=== PATIENT | male | born 1980 | race Hispanic/Latino ===

== ENCOUNTER 2017-03-20 11:50 | Emergency (ER) | payer OTHER ==
[2017-03-20 12:11] VITALS: TEMP 99
[2017-03-20] MEDS ORDERED: cefTRIAXone SODIUM 1 GM VIAL IM ONE (12:36)
[2017-03-20] MEDS ORDERED: TETANUS,DIPHTHERIA,PERTUSSIS 1 EA SYG IM ONE (12:39)
--- NOTE | 2017-03-20 12:43 | ED.PDOC ---
History of Present Illness - General Chief Complaint: Skin/Abrasion/Tear Stated Complaint: skin infection Time Seen by Provider: 03/20/17 12:35 Source: patient Exam Limitations: no limitations - History of Present Illness Initial Comments: 5 D AGO PT WAS WELDING AT WORK AND HE STABBED ABD WITH WIRE ACCIDENTALLY APPROX 1/4 INCH. 3 D AGO HE NOTICED HIS ABD BECOMING REDDENED AROUND THE SITE. IT IS SPREADING. NOT SEEN DR YET. AREA IS PAINFUL BUT NO PURUELENCE. Severity: moderate Improving Factors: nothing Worsening Factors: movement Associated Symptoms: denies symptoms Allergies/Adverse Reactions: Allergies NO KNOWN ALLERGY Allergy (Verified 08/05/14 10:50) Home Medications: Ambulatory Orders Doxycycline Hyclate 100 mg PO BID #20 tab 03/20/17 Sulfa/Trimeth 800/160 (Ds) Tab [Bactrim DS Tab] 1 unit PO BID #20 tab 03/20/17 Review of Systems - Review of Systems Constitutional: States: no symptoms reported. Denies: chills, fever, weakness EENTM: States: no symptoms reported Respiratory: States: no symptoms reported Cardiology: States: no symptoms reported Gastrointestinal/Abdominal: Denies: constipation, diarrhea, nausea Genitourinary: States: no symptoms reported Musculoskeletal: States: no symptoms reported Skin: States: see HPI, change in color, rash Neurological: States: no symptoms reported Endocrine: States: no symptoms reported Hematologic/Lymphatic: States: no symptoms reported All other Systems: Reviewed and Negative Past Medical History (General) - Patient Medical History Hx Seizures: No Hx Stroke: No Hx Dementia: No Hx Asthma: No Hx of COPD: No Hx Cardiac Disorders: No Hx Congestive Heart Failure: No Hx Pacemaker: No Hx Hypertension: Yes Hx Thyroid Disease: No Hx Diabetes: No Hx Gastroesophageal Reflux: No Hx Renal Disease: No Hx Cancer: No Hx of HIV: No Hx Hepatitis C: No Hx MRSA: No Surgical History: no surgical history - Vaccination History Hx Tetanus, Diphtheria Vaccination: No - unknown Hx Influenza Vaccination: No Hx Pneumococcal Vaccination: No - Social History Hx Tobacco Use: No Hx Chewing Tobacco Use: No Hx Alcohol Use: No Hx Substance Use: No Hx Substance Use Treatment: No Hx Depression: No Hx Physical Abuse: No Hx Emotional Abuse: No Hx Suspected Abuse: No - Female History Patient : No Family Medical History - Family History Mother Living Status: Still Living Hx Family Asthma: Yes Physical Exam - Physical Exam General Appearance: Alert, Well Nourished Eye Exam: bilateral normal Ears, Nose, Throat: hearing grossly normal, normal ENT inspection Neck: non-tender, full range of motion Respiratory: chest non-tender, lungs clear Cardiovascular/Chest: normal peripheral pulses, regular rate, rhythm Gastrointestinal/Abdominal: normal bowel sounds, soft Extremity: normal range of motion, non-tender 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 PUNCTURE SITE HAS SCAB. INDURATED BUT NO FLUCTUANCE (I&D IS NOT INDICATED). Progress - Results/Orders Results/Orders: PT STATES HE IS NOT CONSISTENT AT TAKING MEDICATIONS. I EXPLAINED TO HIM THE IMPERATIVENESS OF TAKING ANX, OTHERWISE THE IFXN WILL WORSEN. Departure - Departure Clinical Impression: Cellulitis Disposition: Discharge to Home or Self Care Condition: Fair Departure Forms: ED Discharge - Pt. Copy, Patient Portal Self Enrollment Instructions: DI for Cellulitis -- Adult Diet: resume usual diet Activity: increase activity as tolerated Referrals: Raghu Armstrong MD [Primary Care Provider] - 1-2 Days Prescriptions: Doxycycline Hyclate 100 mg PO BID #20 tab Sulfa/Trimeth 800/160 (Ds) Tab [Bactrim DS Tab] 1 unit PO BID #20 tab Home Medications: Ambulatory Orders Doxycycline Hyclate 100 mg PO BID #20 tab 03/20/17 Sulfa/Trimeth 800/160 (Ds) Tab [Bactrim DS Tab] 1 unit PO BID #20 tab 03/20/17 Additional Instructions: Please take all of the antibiotics twice per day until the bottle is empty. Please see your doctor or return to the ER if the area of redness enlarges.
[2017-03-20] MEDS ORDERED: LIDOCAINE 1% 10 ML VIAL INJ ONE (12:50)
[2017-03-20 13:20] VITALS: BP 135/87; O2SAT 97
== END 2017-03-20 13:20 | disposition home or self-care (01) ==
LOC: ER 11:50
DX: L03.311 Cellulitis of abdominal wall (principal); I10 Essential (primary) hypertension; Z23 Encounter for immunization

== ENCOUNTER 2017-12-14 12:06 | Emergency (ER) | payer BC, OTHER ==
[2017-12-14 12:26] VITALS: BP 140/102; TEMP 96.7; O2SAT 100
--- NOTE | 2017-12-14 12:27 | ED.PDOC ---
History of Present Illness - General Chief Complaint: Upper Extremity Injury Stated Complaint: left hand pain,right toe pain Time Seen by Provider: 12/14/17 12:25 Additional Information: 37 YEAR OLD PRESENTS WITH INJURY TO THE LEFT AHND AND RIGHT BIG TOE AFTER A FALL 3 NIGHT S AGO WHILE CHASING HIS DOG IN THE DARK NO OTHER INJURY REPORTED - History of Present Illness Timing/Duration: getting worse Severity: moderate Improving Factors: immobilization Worsening Factors: movement Associated Symptoms: denies symptoms Allergies/Adverse Reactions: Allergies NO KNOWN ALLERGY Allergy (Verified 08/05/14 10:50) Home Medications: Ambulatory Orders Acetamin W/Cod #3 Tab [Tylenol w/CODEINE #3] 1 ea PO Q6HR PRN #40 tab 12/14/17 Review of Systems - Review of Systems Constitutional: States: no symptoms reported EENTM: States: no symptoms reported Respiratory: States: no symptoms reported Cardiology: States: no symptoms reported Gastrointestinal/Abdominal: States: no symptoms reported Genitourinary: States: no symptoms reported Neurological: States: no symptoms reported Endocrine: States: no symptoms reported Past Medical History (General) - Patient Medical History Hx Seizures: No Hx Stroke: No Hx Dementia: No Hx Asthma: No Hx of COPD: No Hx Cardiac Disorders: No Hx Congestive Heart Failure: No Hx Pacemaker: No Hx Hypertension: Yes Hx Thyroid Disease: No Hx Diabetes: No Hx Gastroesophageal Reflux: No Hx Renal Disease: No Hx Cancer: No Hx of HIV: No Hx Hepatitis C: No Hx MRSA: No - Vaccination History Hx Tetanus, Diphtheria Vaccination: No - unknown Hx Influenza Vaccination: No Hx Pneumococcal Vaccination: No - Social History Hx Tobacco Use: No Hx Chewing Tobacco Use: No Hx Alcohol Use: No Hx Substance Use: No Hx Substance Use Treatment: No Hx Depression: No Hx Physical Abuse: No Hx Emotional Abuse: No Hx Suspected Abuse: No - Female History Patient : No Family Medical History - Family History Mother Living Status: Still Living Hx Family Asthma: Yes Physical Exam - Physical Exam General Appearance: Alert, Comfortable Eye Exam: bilateral normal Ears, Nose, Throat: hearing grossly normal, normal ENT inspection, normal pharynx, abnormal TM (R) Neck: non-tender, full range of motion, supple Respiratory: chest non-tender, lungs clear, normal breath sounds, no respiratory distress Cardiovascular/Chest: normal peripheral pulses, regular rate, rhythm, no edema, no gallop Back Exam: normal inspection, no CVA tenderness Extremity: normal range of motion - RIGHT GREAT TOE ECHYMOSIS SWELLING AND SUB UNGUAL HEMATOMA NOTED LEFT HAND IS SWOLLEN AND TENDER Neurologic: sand 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 Copy, Patient Portal Self Enrollment Instructions: DI for Arm Pain Referrals: Raghu Armstrong MD [Primary Care Provider] - 1-2 Weeks Prescriptions: Acetamin W/Cod #3 Tab [Tylenol w/CODEINE #3] 1 ea PO Q6HR PRN #40 tab PRN Reason: Mild To Moderate Pain Home Medications: Ambulatory Orders Acetamin W/Cod #3 Tab [Tylenol w/CODEINE #3] 1 ea PO Q6HR PRN #40 tab 12/14/17 Additional Instructions: FOLLOW UP WITH DR [facility]
[2017-12-14] MEDS: HYDROcodone 10MG/APAP 325MG 1 EA TAB PO ONE (12:42)
--- NOTE | 2017-12-14 13:08 | RAD ---
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 There is extensive surrounding soft tissue swelling. Three views of the right foot demonstrate no acute fracture or focal osseous destruction. Joint spaces are maintained. There is mild varus angulation to the foot alignment. IMPRESSION: Comminuted, angulated fracture of the left fifth metacarpal. No acute osseous abnormality in the right foot. Electronically signed by: Ham Gardner MD 12/14/2017 1:07 PM CHEMICAL LABORATORY TECHNICIAN
--- NOTE | 2017-12-14 13:08 | RAD ---
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 There is extensive surrounding soft tissue swelling. Three views of the right foot demonstrate no acute fracture or focal osseous destruction. Joint spaces are maintained. There is mild varus angulation to the foot alignment. IMPRESSION: Comminuted, angulated fracture of the left fifth metacarpal. No acute osseous abnormality in the right foot. Electronically signed by: Ham Gardner MD 12/14/2017 1:07 PM PAPER [employer]E GR[employer]
== END 2017-12-14 13:51 | disposition home or self-care (01) ==
LOC: ER 12:06
DX: S62.337A Displaced fracture of neck of fifth metacarpal bone, left hand, initial encounter for closed fracture (principal); S92.421A Displaced fracture of distal phalanx of right great toe, initial encounter for closed fracture; W19.XXXA Unspecified fall, initial encounter; Y92.9 Unspecified place or not applicable

== ENCOUNTER 2019-10-06 09:00 | Emergency (ER) | payer SELFPAY ==
[2019-10-06 09:33] VITALS: TEMP 97.2
[2019-10-06] MEDS ORDERED: hydrOXYzine HCl 25 MG TAB PO ONE (09:37)
--- NOTE | 2019-10-06 09:43 | ED.PDOC ---
History of Present Illness - General Chief Complaint: General Stated Complaint: HEADACHE, SOB AND ANXIETY Time Seen by Provider: 10/06/19 09:27 Source: patient Exam Limitations: no limitations - History of Present Illness Initial Comments: 39 yo M with hx of HTN noncompliance with medication since 2006 who presents for generalized weakness onset yesterday. Pt states that he thinks it is because his BP is so high. Hx of anxiety, has been under a lot of stress recently and believes his anxiety is high right now contributing to his sx. 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 Has not take any decongestants recently. Declines being tested for the flu. Denies f/c, cough, CP, SOB, abd pain, n/v/d, edema, weakness, numbness, change in vision, back or neck pain, YI. When asked directly about endorsing YI to triage nurse he states "it resolved already," states it was very mild, frontal, no radiation. Allergies/Adverse Reactions: Allergies NO KNOWN ALLERGY Allergy (Verified 10/06/19 09:14) Home Medications: Ambulatory Orders Amlodipine Besylate [Norvasc] 5 mg PO DAILY #14 tab 10/06/19 Review of Systems - Review of Systems Constitutional: States: other - High BP. Denies: chills, fever EENTM: States: nose congestion. Denies: blurred vision, double vision, ear pain, throat pain Respiratory: Denies: cough, orthopnea, short of breath, stridor, wheezing Cardiology: Denies: chest pain, edema, palpitations, syncope Gastrointestinal/Abdominal: Denies: abdominal pain, constipation, diarrhea, nausea, vomiting Genitourinary: Denies: dysuria, frequency, hematuria Musculoskeletal: Denies: back pain, neck pain Skin: Denies: lesions, rash Neurological: States: weakness - generalized. Denies: headache, numbness Endocrine: Denies: increased thirst, increased urine Hematologic/Lymphatic: Denies: easy bleeding, easy bruising Past Medical History (General) - Patient Medical History Hx Seizures: No Hx Stroke: No Hx Dementia: No Hx Asthma: No Hx of COPD: No Hx Cardiac Disorders: No Hx Congestive Heart Failure: No Hx Pacemaker: No Hx Hypertension: Yes Hx Thyroid Disease: No Hx Diabetes: No Hx Gastroesophageal Reflux: No Hx Renal Disease: No Hx Cancer: No Hx of HIV: No Hx Hepatitis C: No Hx MRSA: No Surgical History: no surgical history - Vaccination History Hx Tetanus, Diphtheria Vaccination: No Hx Influenza Vaccination: No Hx Pneumococcal Vaccination: No Immunizations Up to Date: No - Social History Hx Tobacco Use: No Hx Chewing Tobacco Use: No Hx Alcohol Use: Yes - WEEKLY Hx Substance Use: No Hx Substance Use Treatment: No Hx Depression: No Hx Physical Abuse: No Hx Emotional Abuse: No Hx Suspected Abuse: No - Female History Patient : No Family Medical History - Family History Mother Living Status: Still Living Hx Family Asthma: Yes Physical Exam - Physical Exam General Appearance: Alert, Comfortable, No apparent distress, Well Developed, Well Nourished, Other - Fidgety Eye Exam: bilateral normal Ears, Nose, Throat: hearing grossly normal, normal ENT inspection Neck: non-tender, full range of motion, supple, normal inspection Respiratory: chest non-tender, lungs clear, normal breath sounds, no respiratory distress, no accessory muscle use Cardiovascular/Chest: normal peripheral pulses, regular rate, rhythm, no edema, no gallop, no JVD, no murmur Peripheral Pulses: radial,right: 2+, radial,left: 2+ Gastrointestinal/Abdominal: normal bowel sounds, non tender, soft, no organomegaly, no pulsatile mass Back Exam: normal inspection, no CVA tenderness, no vertebral tenderness Extremity: normal range of motion, non-tender, normal inspection, no pedal edema, no calf tenderness, normal capillary refill Neurologic: staff research associate II-XII nml as tested, no motor/sensory deficits, alert, normal mood/affect, oriented x 3 Skin Exam: normal color, warm/dry Progress - Progress Progress: Pt is feeling improved and comfortable with d/c home. He is asymptomatic at this time. Will start on amlodipine, advised PCP follow up this week, he agrees. I have explained and reviewed all results with the pt. I explained that emergent conditions may arise and to return to the ER for new, worsening, or any persistent conditions. I've explained the importance of f/u for recheck. All questions and concerns addressed at this time. Pt understands and agrees with plan. Pt well appearing, NAD, is stable for discharge. Latisha Marrero MD Emergency Medicine Physician Billing Number [id number] - Results/Orders Results/Orders: 10/06/19 09:30 EKG STAT Laboratory Results - last 24 hr 10/06/19 10/06/19 10/06/19 09:48 09:48 09:48 WBC 7.1 RBC 4.69 L Hgb 14.8 Hct 43.6 MCV 92.9 MCH 31.6 H MCHC 34.0 RDW 12.9 Plt Count 259 MPV 7.7 Absolute Neuts (auto) 4.20 Absolute Lymphs (auto) 1.90 Absolute Monos (auto) 0.80 Absolute Eos (auto) 0.10 Absolute Basos (auto) 0.00 Neutrophils % 59.6 Lymphocytes % 26.9 Monocytes % 11.5 H Eosinophils % 1.5 Basophils % 0.5 Sodium 137 Potassium 4.0 Chloride 105 Carbon Dioxide 25 Anion Gap 11.0 L BUN 17 Creatinine 0.76 BUN/Creatinine Ratio 22.4 H Random Glucose 107 H Serum Osmolality 275.8 Calcium 9.6 Total Bilirubin 0.8 AST 32 ALT 47 Alkaline Phosphatase 88 Troponin I < 0.02 Serum Total Protein 7.9 Albumin 4.5 Globulin 3.4 Albumin/Globulin Ratio 1.3 Vital Signs - 24 hr 10/06/19 10/06/19 09:10 10:49 Temperature 97.2 F L Pulse Rate [ 72 66 MONITOR] Respiratory 20 18 Rate Blood Pressure 159/108 142/105 [LA] O2 Sat by Pulse 99 98 Oximetry - EKG/XRAY/CT EKG: Omi, Sinus, RBBB - Incomplete, no ST T wave changes Comments: Sinus arrhythmia CT Ordered: No CT Interpretation Call Back: No Departure - Departure Clinical Impression: History of anxiety, Generalized weakness, Chronic nasal congestion HTN (hypertension) Qualifiers: Hypertension type: unspecified Qualified Code(s): I10 - Essential (primary) hypertension Time of Disposition: 10:38 Disposition: Discharge to Home or Self Care Health Concerns: condition: stable Departure Forms: ED Discharge - Pt. Copy, Patient Portal Self Enrollment Instructions: High Blood Pressure (DC) Prescriptions: Amlodipine Besylate [Norvasc] 5 mg PO DAILY #14 tab Home Medications: Ambulatory Orders Amlodipine Besylate [Norvasc] 5 mg PO DAILY #14 tab 10/06/19 Additional Instructions: Follow up: [facility] As needed, if symptoms worsen Your Primary Care Physician Make appointment, two days, for follow up
[2019-10-06 10:50] VITALS: BP 142/105; O2SAT 98
== END 2019-10-06 10:50 | disposition home or self-care (01) ==
LOC: ER 09:00
DX: I10 Essential (primary) hypertension (principal); F41.9 Anxiety disorder, unspecified; R53.1 Weakness; R09.81 Nasal congestion; R51 Headache; I45.10 Unspecified right bundle-branch block; R00.1 Bradycardia, unspecified; Z91.14 Patient's other noncompliance with medication regimen; Z79.899 Other long term (current) drug therapy

== ENCOUNTER 2020-03-28 | Emergency (ER) | payer BC ==
--- NOTE | 2020-03-28 09:24 | ED.PDOC ---
History of Present Illness - General Stated Complaint: Dry Throat Time Seen by Provider: 03/28/20 09:20 Source: patient Exam Limitations: no limitations Additional Information: The patient is a 39 year old male who presents to the ED complaining of dry throat since yesterday evening. States that he was recently started on lisinopril and protonix, he took his first dose today. He complains of "dry throat" starting yesterday. He spent around 6 hours driving from out of town and also reports that he drank over 12 beers. He typically drinks this much beer on the weekend. Says that he feels like he has a difficult time swallowing and that his throat is dry. It was worse overnight causing him difficulty sleeping. He feels as though his symptoms are better this morning. No shortness of breath or other complaints at this time. - History of Present Illness Allergies/Adverse Reactions: Allergies NO KNOWN ALLERGY Allergy (Verified 10/06/19 09:14) Home Medications: Ambulatory Orders Amlodipine Besylate [Norvasc] 5 mg PO DAILY #14 tab 10/06/19 Review of Systems - Review of Systems Constitutional: States: no symptoms reported EENTM: States: throat pain, other - dry throat Respiratory: Denies: cough, short of breath Cardiology: Denies: chest pain, palpitations Gastrointestinal/Abdominal: Denies: abdominal pain, constipation, diarrhea, nausea, vomiting Musculoskeletal: States: no symptoms reported Skin: States: no symptoms reported Neurological: States: no symptoms reported Endocrine: States: no symptoms reported Hematologic/Lymphatic: States: no symptoms reported All other Systems: Reviewed and Negative, No Change from Baseline Past Medical History (General) - Patient Medical History Hx Seizures: No Hx Stroke: No Hx Dementia: No Hx Asthma: No Hx of COPD: No Hx Cardiac Disorders: No Hx Congestive Heart Failure: No Hx Pacemaker: No Hx Hypertension: Yes Hx Thyroid Disease: No Hx Diabetes: No Hx Gastroesophageal Reflux: No Hx Renal Disease: No Hx Cancer: No Hx of HIV: No Hx Hepatitis C: No Hx MRSA: No - Vaccination History Hx Tetanus, Diphtheria Vaccination: No Hx Influenza Vaccination: No Hx Pneumococcal Vaccination: No - Social History Hx Tobacco Use: No Hx Chewing Tobacco Use: No Hx Alcohol Use: Yes - WEEKLY Hx Substance Use: No Hx Substance Use Treatment: No Hx Depression: No Hx Physical Abuse: No Hx Emotional Abuse: No Hx Suspected Abuse: No - Female History Patient : No Family Medical History - Family History Mother Living Status: Still Living Hx Family Asthma: Yes Physical Exam - Physical Exam General Appearance: Comfortable, No apparent distress Ears, Nose, Throat: normal ENT inspection, normal pharynx - Normal pharyngeal exam. Moist mucous membranes. Tonsils normal. No exudate or erythema. No tongue swelling. Neck: non-tender, full range of motion, normal inspection Respiratory: no respiratory distress Gastrointestinal/Abdominal: non tender, soft Progress - Progress Progress: 03/28/20 09:26 Patient presents complaining of dry throat after drinking 12 beers. Describes the sensation as "like I can't swallow." He says worse at night and after eating/drinking alcohol. Tolerating PO and tolerating secretions. He did start lisinopril this morning but symptoms prior to taking this medication and there are no clinical signs of angioedema. His pharyngeal exam is normal. There is no swelling, erythema or exudate. Given symptoms worse at night and after drinking may be related to reflux vs. anxiety or other. No evidence for acute process. Will continue outpatient management, had first dose of protonix today. He will follow up with his PCP. Departure - Departure Clinical Impression: GERD (gastroesophageal reflux disease) Time of Disposition: 09:28 Disposition: Discharge to Home or Self Care Condition: Excellent Departure Forms: ED Discharge - Pt. Copy, Patient Portal Self Enrollment Instructions: Acid Reflux and GERD in Adults (DC) Diet: resume usual diet Activity: increase activity as tolerated Referrals: Henna Javier FNP [Primary Care Provider] - 1-2 Weeks Home Medications: Ambulatory Orders Amlodipine Besylate [Norvasc] 5 mg PO DAILY #14 tab 10/06/19
== END 2020-03-28 09:36 | disposition home or self-care (01) ==